=== PATIENT | female | born 1940 | race Caucasian/White ===

== ENCOUNTER 2025-07-14 13:18 | Outpatient (AMB) | payer MEDICARE, SELFPAY ==
[2025-07-14 13:21] VITALS: BMI 25.8
--- NOTE | 2025-07-14 13:21 | A.PHYSOV_ITS ---
Vital Signs 07/14/25 13:21 Height 5 ft Weight 132 lb BMI 25.8 Intake Visit Reasons: NPV Fani Ladd ref-eval for back injections Intake Note: Patient is a 85 year old female in office today as a new patient for back pain. right side of hip Allergies morphine (MORPHINE) Allergy (Unknown, Verified 07/14/25 13:21) UNKNOWN REACTION HPI Comments Details: History of Present Illness The patient is an 85 year old individual presenting for evaluation of lower back pain. The pain is primarily on the right side of the lower back, right flank and she reports pain radiating to her abdominal area and describes it as pain in her right hip, rated 6/10 in severity, and has been present for a long time. Most recent lumbosacral spine x-rays were noncontributory. Patient presented accompanied by her son. The patient reports pain at nighttime that interferes with sleep. For management, the patient has used Tylenol, ibuprofen, and Bengay topical cream. Tramadol 50 mg twice daily as needed was prescribed previously but provided no significant relief. Despite the pain, the patient is able to perform all activities of daily living and denies any change in bowel or bladder habits. Lumbosacral spine MRI performed on May 12, 2025, revealed a right paracentral foraminal extrusion at T11-T12 causing severe right foraminal stenosis. The MRI also showed moderate right foraminal stenosis and moderate to severe spinal stenosis at the L3-L4 level, as well as moderate bilateral neuroforaminal stenosis at the L4-L5 level. The patient has a history of diabetes. Pain Description - Onset: The pain has been ongoing for years. - Location: Pain is located on the right side of the lower back and buttock. - Radiation: The pain radiates to both legs and to the stomach area. - Severity: Rated 6 out of 10. - Character: Associated with numbness and tingling in both lower extremities. - Exacerbating factors: Pain is worse at nighttime when trying to sleep. - Relieving factors: The patient has tried Tylenol, ibuprofen, Bengay cream, and tramadol, but reports these are not really helping. Results - Lumbar sacral spine MRI (05/12/2025): - T11-T12: Right paracentral foraminal extrusion contributing to severe right foraminal stenosis. - L3-L4: Moderate right foraminal stenosis and moderate to severe spinal stenosis. - L4-L5: Moderate bilateral neuroforaminal stenosis. 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 - Musculoskeletal: Reports right-sided low back pain. - Neurological: Reports numbness and tingling in both lower extremities. - Gastrointestinal: Reports pain radiating to the stomach. - Genitourinary: Denies any change in bladder habits. Physical Exam Exam Exam: Physical Exam - Back: Marked tenderness to palpation at the thoracolumbar junction, corresponding to the T11-T12 level. - Back: Less tenderness on palpation over the lower lumbar spine. Neurological examination was nonfocal. She demonstrated no upper motor neuron signs. She ambulated without antalgia, forward flexed posture. Lumbar extension was restricted, exaggerated thoracic kyphosis. Vital Signs: BMI result Body Mass Index 25.8 Assessment & Plan Assessment & Plan (1) Thoracic radiculitis: Code(s): M54.14 - Radiculopathy, thoracic region Category: Medical (2) Thoracic disc herniation: Code(s): M51.24 - Other intervertebral disc displacement, thoracic region Category: Medical (3) Spinal stenosis, lumbar region with neurogenic claudication: Code(s): M48.062 - Spinal stenosis, lumbar region with neurogenic claudication Category: Medical Plan Pain Management - Affect: The pain is worse at night and interferes with sleep. - Analgesia: Current pain level is 6/10. - Analgesia: The patient uses Tylenol and ibuprofen interchangeably and was prescribed tramadol 50 mg twice daily as needed, which has not been very effective. - Activities of Daily Living: The patient is able to perform all activities of daily living. Plan Patient was informed and verbally consented to the use of an ambient scribe for clinic note documentation during this visit. 1. Thoracic Radiculopathy And Lumbar Spinal Stenosis The patient's right-sided back pain, which radiates to the stomach, is attri buted to a right paracentral foraminal disc extrusion at T11-T12, causing severe right foraminal stenosis as seen on MRI. The pain has been chronic for years, and current medical management with Tylenol and tramadol is not providing adequate relief. Options including continued medication and a cortisone injection were discussed. Given the chronicity and the patient's history of diabetes, a local steroid injection is preferred over oral steroids to avoid raising blood sugar. The patient consented to proceed with a right T11 transforaminal epidural steroid injection to be performed in the office under X-ray guidance. The office will contact the patient to schedule the procedure. For interim pain control, the patient was advised to take two extra-strength Tylenol (1000 mg total) with one tramadol tablet together for better efficacy. Discussion Notes I reviewed the patient's MRI with the patient, explaining that a herniated disc at the T11-T12 level is pinching a nerve and causing the pain that wraps around to the stomach. We discussed management options, including continuing medications or proceeding with a cortisone injection. I explained that while the disc may shrink over time, an injection could offer quicker relief. Given the patient's history of diabetes, I advised that a local injection is preferable to oral steroids to minimize effects on blood sugar. We also discussed the choice between an in-office procedure and a sedated procedure at the hospital, with the patient opting for the in-office setting due to its convenience and speed. The patient agreed to a right T11 transforaminal epidural steroid injection. I instructed the patient to take 1000 mg of Tylenol with one tramadol tablet for pain control until the procedure, and informed the patient that my staff will call to schedule the injection. Risks and benefits of the procedure were discussed with the patient. Potential alternative measures were also discussed. Patient understands that the procedure is completely elective. Potential side effects associated with injectable medications were discussed. All questions were answered to the patient's satisfaction. Patient Instructions - For pain, you can take two extra-strength Tylenol pills (for a total of 1000 mg) together with one of your tramadol pills. - Taking these medicines together may provide better pain relief. - We have decided to proceed with a cortisone shot in your back to help reduce the pain. - This procedure will be done here in the office. - Our office staff will call you to set up an appointment for the injection. Coding Level of Care Code New Pt Level 4 (70257) Complex visit Add On G2211 Diagnoses Thoracic radiculitis M54.14 Thoracic disc herniation M51.24 Spinal stenosis, lumbar region with neurogenic claudication M48.062
--- OUTSIDE RECORDS SUMMARY | 2025-07-14 15:17 | XMS_ITS ---
Author Name [facility] Organization Unknown Encounters Encounter Type Encounter Reason Primary Diagnosis Location Date Ambulatory [facility] 06/10/2024 Care Team Organization Name Specialty Phone Email Start Date End Da te Formerly [facility] 2024 [facility] Magaly [facility] 02/28/2024
--- OUTSIDE RECORDS SUMMARY | 2025-07-14 15:17 | XMS_ITS | Clinical Summary ---
Author Organization [facility] Address [address] [place] [address] Care Team Providers Care Retail Sales Teammate Name Role Phone Merlin Nelson DO Primary Care Provider [phone] Allergies Active Allergy Reactions Criticality Noted Date Comments Morphine 09/05/2016 Medications Medication Sig Dispensed Refills Start Date End Date Status PROAIR HFA 108 (90 Base) MCG/ACT inhaler INAHLE 2 PUFFS NEEDED EVERY 6 HOURS ONLY 3 01/30/2018 Active alendronate (FOSAMAX) tablet 70 mg Take 70 mg by mouth. 0 Acti ve aspirin (ASPIRIN ADULT LOW DOSE) 81 MG EC tablet Take 81 mg by mouth. 0 Ac tive SYMBICORT 160-4.5 MCG/ACT inhaler INHALE 2 PUFFS TWICE A DAY INHALATION 90 DAYS 3 01/26/2018 Active cholecalciferol (VITAMIN D3) 1000 units tablet Take 1 tablet by mouth. 0 Active furosemide (LASIX) 40 MG tablet Take 40 mg by mouth daily. 1 01/26/2018 Active levothyroxine (SYNTHROID, LEVOXYL) tablet 75 mcg Take 75 mcg by mouth. 0 Active losartan-hydrochloro thiazide (HYZAAR) 100-25 MG per tablet Take 1 tablet by mouth daily. 3 01/26/2018 Active lovastatin (MEVACOR) 20 MG tablet TAKE 1 TABLET BY MOUTH EVERY DAY WITH A MEAL 3 01/07/2018 Active metFORMIN (GLUCOPHAGE-XR) ER 24 hr tablet 500 mg Take 2,000 mg by mouth daily. 3 01/04/2018 Active Multiple Vitamins-Minerals (CENTRUM SILVER) tablet Take 1 tablet by mouth. 0 Active oxybutynin (DITROPAN-XL) 10 MG 24 hr tablet Take 10 mg by mouth. 0 Ac tive potassium chloride ER (K-DUR) 10 MEQ tablet Take 10 mEq by mouth. 0 Active predniSONE (DELTASONE) tablet 20 mg Take by mouth. 0 Active Active Problems Problem Noted Date Diagnosed Date Right shoulder injury 03/14/2018 Family History Medical History Relation Name Comments Heart disease Brother Heart disease Father Cancer Mother Diabetes Mother Heart disease Sister Relation Name Status Comments Brother Father Mother Sister Social History Tobacco Use Types Packs/Day Years Used Date Smoking Tobacco: Never Assessed Sex and Gender Information Value Date Recorded Sex Assigned at Not on file Gender Identity Not on file Sexual Orientation Not on file Last Filed Vital Signs Vital Sign Reading Time Taken Comments Blood Pressure - - Pulse - - Temperature - - Respiratory Rate - - Oxygen Saturation - - Inhaled Oxygen Concentration - - Weight 80.7 kg (178 lb) 03/14/2018 9:43 AM EDT Height 152.4 cm (5') 03/14/2018 9:43 AM EDT Body Mass Index 34.76 03/14/2018 9:43 AM EDT Plan of Treatment Health Maintenance Due Date Last Done Comments COVID-19 Vaccine (#1) 1942 Depression Screening 1954 Preventative Health Evaluation 02/24/1960 DTap / Tdap / Td (1 - Tdap) 1961 Shingrix-Zoster Vaccine (1 of 2) 02/24/1992 Fall Risk Assessment 2007 Osteoporosis Screening (DEXA Scan) 2007 Pneumococcal Vaccine (1 of 1 - PCV) 2007 RSV Adult > 60+ Yrs or Pregn ant (1 - 1-dose 75+ series) 2017 Influenza Vaccine (#1) 2025 Hepatitis B Vaccines Aged Out No long er eligible based on patient's age to complete this topic RSV Ped < 20 months Aged Out No longe r eligible based on patient's age to complete this topic Care Teams Retail Sales Teammate Relationship Specialty Start Date End Date Merlin Nelson DO [address] [place] [id number] PCP - General Family Medicine 03/07/18
== END 2025-07-14 13:43 | disposition home or self-care (01) ==
LOC: HO.HPHYS 13:18
PROVIDERS: PCP Nurse Practitioner Acute Care; Visit Provider Physical Medicine & Rehabilitation
DX: M54.14 Radiculopathy, thoracic region (principal); M51.24 Other intervertebral disc displacement, thoracic region; M48.062 Spinal stenosis, lumbar region with neurogenic claudication
CPT/HCPCS: 99204; G2211

== ENCOUNTER → 2025-07-14 13:18 | Outpatient (BNVA) | payer MEDICARE, SELFPAY | PROVIDERS: PCP Nurse Practitioner Acute Care; Visit Provider Physical Medicine & Rehabilitation | DX: M48.062 Spinal stenosis, lumbar region with neurogenic claudication (principal); M51.14 Intervertebral disc disorders with radiculopathy, thoracic region; E11.9 Type 2 diabetes mellitus without complications | CPT/HCPCS: 99202 ==